=== PATIENT | female | born 1980 | race Caucasian/White ===

== ENCOUNTER 2023-11-08 12:29 | Emergency (ER) | payer SELFPAY ==
[2023-11-08] VITALS (9 sets, daily range): BP systolic 111–217; BP diastolic 65–119; PULSE 86–145; RESP 15–36; TEMP 36.9–37; O2SAT 84–96; BMI 33.3
--- NOTE | ~2023-11-08 | XR_ITS ---
EXAMINATION: XR CHEST CLINICAL INFORMATION: 23-year-old female with shortness of breath COMPARISON: None available. TECHNIQUE: Frontal view of the chest was obtained. FINDINGS: No significant abnormality is noted involving the heart, lungs, mediastinum, bony thorax or soft tissues. XR/XR chest 1V IMPRESSION: Unremarkable examination. Electronically signed by: Arianne Lua MD 11/08/2023 04:32 PM EDT RP
--- NOTE | 2023-11-08 12:37 | ED.GENADULT ---
HPI - General Adult General Chief complaint: Dyspnea Stated complaint: ASTHMA LURDES,MDI NOT WORKING PER EMS Time Seen by Provider: 11/08/23 12:35 History of Present Illness ED Provider: Александр CASTILLO narrative: The patient is a 43-year-old with a history of asthma who presents with worsening shortness of breath over the last few days. Shortness of breath became severe today and an ambulance was called and they were brought to the hospital. The patient is from the [facility] and normally goes to [facility] in [facility]. The patient has never been at this hospital before. No definite fever. The patient has a long history of asthma. The patient says they have not been hospitalized for asthma since they were teenager. The patient says they were once intubated but the patient says that that occurred after she accidentally received a wrong medication in a medical setting. She says she has never been intubated because of simple asthma. Related Data Previous Rx's ?Medication ?Instructions ?Recorded albuterol sulfate 90 mcg/actuation 2 puff inhalation Q4-6H PRN 11/08/23 aerosol inhaler shortness of breath or wheezing #8.5 grams azithromycin 250 mg tablet 250 mg PO DAILY 4 days #4 tabs 11/08/23 prednisone 20 mg tablet 20 mg PO DAILY #12 tabs 11/08/23 Allergies Allergy/AdvReac Type Severity Reaction Status Date / Time egg Allergy Anaphylaxis Verified 11/08/23 12:41 ibuprofen [From Motrin] Allergy Shortness Verified 11/08/23 12:41 of Breath propofol Allergy Shortness Verified 11/08/23 12:41 of Breath Review of Systems Review of Systems: Yes all other systems are reviewed and are negative [facility] Social History Social History Advance Directives: No Physical Exam ED Vital Signs: Vital Signs - 24 hr 11/08/23 12:37 11/08/23 12:55 11/08/23 13:15 Temperature 98.6 F Pulse Rate 145 H 131 H 117 H Respiratory Rate 36 H 30 H 25 H Blood Pressure 217/119 H Pulse Oximetry 90 L Oxygen Delivery Method Aerosol Mask 11/08/23 13:50 11/08/23 14:36 11/08/23 15:13 Temperature 98.4 F Pulse Rate 117 H Respiratory Rate 29 H 27 H 15 Blood Pressure 111/76 Pulse Oximetry 96 Oxygen Delivery Method BiPAP 11/08/23 15:16 08/21/24 15:24 Temperature Pulse Rate 86 Respiratory Rate 16 16 Blood Pressure Pulse Oximetry Oxygen Delivery Method BMI result Body Mass Index 33.3 Const Other: The patient was awake and alert and looked extremely short of breath. HENMT Other: Face is symmetrical, mucous membranes moist. Eyes General: appearance normal, both eyes and all related structures Neck Other: No stridor, no JVD, no swelling Resp Other: The patient was tachypneic with increased work of breathing. There were inspiratory and expiratory wheezes bilaterally. Cardio Rate: tachycardic Rhythm: regular rhythm Heart sounds: S1 normal heart sound present and S2 normal heart sound present GI Other: Abdomen is soft and nontender Skin Other: Skin is pale and dry Neuro Other: The patient is awake and alert with a normal mental status. Moving all extremities normally. Grossly neurologically intact. Extrem Other: No peripheral edema, no calf swelling or tenderness, no asymmetry. Medications Administered Discontinued Medications Generic Name Dose Route Start Last Admin Trade Name Freq PRN Reason Stop Dose Admin Albuterol Sulfate 5 mg/ 7.5 mg 11/08/23 12:40 11/08/23 12:54 Albuterol Sulfate 2.5 mg INHALE 11/08/23 12:41 7.5 mg ONCE ONE Administration Albuterol Sulfate 5 mg/ 7.5 mg 11/08/23 13:08 11/08/23 13:13 Albuterol Sulfate 2.5 mg INHALE 11/08/23 13:09 7.5 mg ONCE ONE Administration Magnesium Sulfate 2 gm in 50 mls @ 150 mls/hr 11/08/23 12:38 11/08/23 13:11 Magnesium Sulfate/H2o IV 11/08/23 12:57 Infused ONCE ONE Infusion Lactated Ringer's 1,000 mls @ 999 mls/hr 11/08/23 12:45 11/08/23 14:37 Lr IV 11/08/23 13:45 Infused .Q1H1M [place] Infusion Lactated Ringer's 1,000 mls @ 999 mls/hr 11/08/23 14:15 11/08/23 14:39 Lr IV 11/08/23 15:15 999 mls/hr .Q1H1M [place] Administration Methylprednisolone Sodium Succinate 80 mg 11/08/23 12:38 11/08/23 12:44 Methylprednisolone Sod Succ 125 Mg/2 Ml Vial IVPUSH 11/08/23 12:39 80 mg ONCE ONE Administration Medical Decision Making Lab Data Labs: Lab Results 11/08/23 Range/Units 13:25 Influenza Type A (PCR) NEGATIVE (Negative) Influenza Type B (PCR) NEGATIVE (Negative) RSV RNA Qual (PCR) NEGATIVE (Negative) SARS-CoV-2 RNA (RT-PCR) NEGATIVE (Negative) Discharge Plan Discharge Clinical Impression: Asthma with exacerbation, Acute asthmatic bronchitis Patient Disposition: Home, Self-Care Instructions: Asthma (ED) Additional Instructions: Take your next dose of prednisone tomorrow. Please take prednisone as prescribed once a day. Take your next dose of azithromycin tomorrow, please take azithromycin once a day as prescribed. Use the albuterol inhaler 2 puffs every 4-6 hours as needed. Please follow up with your regular doctor soon. Call in the morning for an appointment. Go to the nearest emergency room if significantly worse. Prescriptions: New prednisone 20 mg tablet 20 mg PO DAILY Qty: 12 0RF Rx Instructions: Take 3 tablets by mouth daily for 2 days then 2 tablets by mouth daily for 3 days. azithromycin 250 mg tablet 250 mg PO DAILY 4 Days Qty: 4 0RF Rx Instructions: start on day 2 of therapy albuterol sulfate 90 mcg/actuation HFA aerosol inhaler 2 puff inhalation Q4-6H PRN (Reason: shortness of breath or wheezing) Qty: 8.5 0RF Print Language: Korean
[2023-11-08] MEDS: methylPREDNISolone Sod Succ 125 MG/2 ML VIAL 80 MG IVPUSH (12:44)
[2023-11-08] MEDS: Magnesium Sulfate/H2O 2 GM/50 ML PIGGYBACK IV (12:44)
--- NOTE | 2023-11-08 12:46 | PC.NURSE ---
Pt presented via EMS for severe resp distress, hx of asthma, using inhaler with no relief. Has hx of intubation in past. Found to be 60% on RA by EMS, given duo neb. Pt noted to be in obvious distress on arrival, RR 34-38, tripoding with wheezing bilat. Medicated per MAY Rt at bedside setting up HFNC w/ albuterol 7.5 mg, settings: 50L 50%
[2023-11-08] MEDS: Albuterol Sulfate 5 MG, Albuterol Sulfate (0.083%) 2.5 MG 7.5 MG INHALE ×2 (12:54→13:13)
[2023-11-08] MEDS: Lactated Ringers 1,000 ML 999 ML IV ×2 (13:10→14:39)
--- NOTE | 2023-11-08 13:31 | PC.NURSE ---
initial interaction with patient, patient presents [place], states they tried to take her inhalers with no relief, initially presented hypoxic and tachypneic,patinet currently resting comfortably on stretcher on high flow, oxygen saturation maintaining 98%, patient endorsing feeling better at this time, able to speak in full and complete sentences. patient states this has happened in the past, about 20 years ago, and she ended up being intubated, however she is endorsing feeling better at this time. 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 respirations 14, tachycardic at 113. nasal swab completed and sent to lab, blood work completed and sent to lab. awaiting further eval
[2023-11-08 14:08] LABS: Influenza A PCR NEGATIVE (Negative); Influenza B PCR NEGATIVE (Negative); Resp Syncy Virus RNA Qual PCR NEGATIVE (Negative); SARS COV2 PCR INHOUSE NEGATIVE (Negative)
[2023-11-08] MEDS: Albuterol Sulfate 2.5 MG, Albuterol Sulfate (0.083%) 2.5 MG 5 MG INHALE (16:22)
[2023-11-08] MEDS: Azithromycin 500 MG TABLET PO (16:29)
[2023-11-08] MEDS: predniSONE 20 MG TABLET 60 MG PO (16:29)
== END 2023-11-08 16:40 | disposition home or self-care (01) ==
PROVIDERS: Emergency Provider Emergency Medicine
DX: J45.901 Unspecified asthma with (acute) exacerbation (principal); R06.02 Shortness of breath; Z03.818 Encounter for observation for suspected exposure to other biological agents ruled out
CPT/HCPCS: 0241U; 71045; 94640; 96361; 96365; 96375; 99284; J2919; J3475; J7120